=== PATIENT | female | born 1980 | race Caucasian/White ===

== ENCOUNTER 2019-01-28 12:55 | Outpatient (CLI) | payer OTHER | END 2019-01-28 23:59 | disposition home or self-care (01) | LOC: STAR 12:55 | PROVIDERS: ATTEND Obstetrics & Gynecology | DX: Z01.818 Encounter for other preprocedural examination (principal); N93.9 Abnormal uterine and vaginal bleeding, unspecified; N92.0 Excessive and frequent menstruation with regular cycle; R93.89 Abnormal findings on diagnostic imaging of other specified body structures | CPT/HCPCS: 93005 ==

== ENCOUNTER 2019-01-30 09:21 | Day surgery (SDC) | payer OTHER ==
[2019-01-28 14:01] LABS: BASOPHILS # (AUTO) 0.04 x10^3/uL (0-0.1); BASOPHILS % (AUTO) 1 % (0-1); EOSINOPHILS % (AUTO) 1 % (1-7); LYMPHOCYTES % (AUTO) 18 % (22-44); MD NO; MEAN CORPUSCULAR HEMOGLOBIN 29.1 pg (27.0-34.8); MEAN CORPUSCULAR HGB CONC 32.5 g/dL (32.4-35.8); MEAN CORPUSCULAR VOLUME 89.7 fL (80-100); MEAN PLATELET VOLUME 7.5 fL (7.4-10.4); MONOCYTES # (AUTO) 0.49 x10^3/uL (0.2-0.8); MONOCYTES % (AUTO) 6 % (2-9); NEUTROPHILS # (AUTO) 6.01 x10^3/uL (1.8-6.8); NEUTROPHILS % (AUTO) 74 % (42-75); PLATELET COUNT 303 x10^3/uL (130-400); RED CELL DISTRIBUTION WIDTH 14.7 % (9.6-15.2)
[2019-01-28 14:13] LABS: ALBUMIN 3.1 g/dL (3.4-5.0); ANION GAP 6 mmol/L (5-15); CHLORIDE 107 mmol/L (98-107)
[2019-01-28 14:20] LABS: ALANINE AMINOTRANSFERASE 60 U/L (12-78); ALKALINE PHOSPHATASE 88 U/L (45-117); BILIRUBIN,TOTAL 0.4 mg/dL (0.2-1.0); CREATININE 1.06 mg/dL (0.55-1.02); TOTAL PROTEIN 7.2 g/dL (6.4-8.2)
[~2019-01-30] VITALS: Ht 170.2 cm; Wt 182.5 kg
[~2019-01-30 09:21] MED LIST: CHOL10003 PO; HYDROCHLOROTH12.5 MG PO; IRON PO; LISI-167 PO; MULT-516 PO
[2019-01-30] MEDS ORDERED: LACTATED RINGERS 1,000 ML IV SCH (09:42)
[2019-01-30 09:50] VITALS: BP 137/92
[2019-01-30] MEDS ORDERED: BUPIVACAINE/PF 0.25% ONE (10:33)
[2019-01-30] MEDS ORDERED: EPINEPHRINE 1 MG/ML, 1ML ONE (10:33)
[2019-01-30] MEDS ORDERED: SILVER NITRATE STICK TP ONE (10:33)
[2019-01-30] MEDS ORDERED: MIDAZOLAM 1 MG/ML, 2ML ONE (10:49)
[2019-01-30] MEDS ORDERED: FENTANYL PF 250 MCG/5ML ONE ×2 (10:49→12:39)
[2019-01-30] MEDS ORDERED: DEXAMETHASONE 4 MG/ML, 1ML ONE (10:52)
[2019-01-30] MEDS ORDERED: PROPOFOL 10 MG/ML, 20ML ONE (10:52)
[2019-01-30] MEDS ORDERED: ONDANSETRON 2MG/ML, 2ML ONE (10:52)
[2019-01-30] MEDS ORDERED: CEFAZOLIN 1,000 MG ONE ×2 (10:52→12:29)
[2019-01-30] MEDS ORDERED: SUCCINYLCHOLINE 20 MG/ML, 10ML ONE (11:20)
[2019-01-30] MEDS ORDERED: MEPERIDINE/PF 25MG/0.5ML IVPush PRN (11:30)
[2019-01-30] MEDS ORDERED: HALOPERIDOL 5 MG/ML IV PRN (11:30)
[2019-01-30] MEDS ORDERED: hydrALAzine 20 MG/ML, 1ML IV PRN (11:30)
[2019-01-30] MEDS ORDERED: PROMETHAZINE 25 MG SUPP PR PRN (11:30)
[2019-01-30] MEDS ORDERED: PROMETHAZINE 25 MG/ML, 1ML IM PRN ×2 (11:30)
[2019-01-30] MEDS ORDERED: OXYcodone 5 MG/5 ML ORAL.SOL UDC PO PRN (11:30)
[2019-01-30] MEDS ORDERED: ACETAMINOPHEN 325 MG TABLET PO PRN (11:30)
[2019-01-30] MEDS ORDERED: MORPHINE SULFATE 4 MG/ML, 1ML IVPush PRN (11:30)
[2019-01-30] MEDS ORDERED: ONDANSETRON ODT 8 MG PO PRN (11:30)
[2019-01-30] MEDS ORDERED: ONDANSETRON 2MG/ML, 2ML IV PRN (11:30)
[2019-01-30] MEDS ORDERED: LABETALOL 5MG/ML, 20ML IV PRN (11:30)
[2019-01-30] MEDS ORDERED: PROMETHAZINE 25 MG/ML, 1ML IV PRN (11:30)
[2019-01-30] MEDS ORDERED: PROMETHAZINE 12.5 MG SUPP PR PRN (11:30)
[2019-01-30] MEDS ORDERED: HYDROmorphone 2 MG/ML, 1ML IVPush PRN (11:30)
[2019-01-30] MEDS ORDERED: KETOROLAC 30 MG/1 ML ONE (13:19)
[2019-01-30] MEDS ORDERED: OXYcodone 5 MG/5 ML ORAL.SOL UDC ONE (13:20)
[2019-01-30] MEDS ORDERED: FENTANYL PF 100 MCG/2ML ONE (13:20)
[2019-01-30] MEDS: FENTANYL PF 100 MCG/2ML IV PRN ×2 (13:22→13:37)
[2019-01-30] MEDS ORDERED: KETOROLAC 30 MG/1 ML IVPush ONE (13:30)
[2019-01-30] MEDS ORDERED: PROMETHAZINE 25 MG/ML, 1ML ONE (14:02)
[2019-01-30] MEDS ORDERED: LABETALOL 5MG/ML, 20ML IVPush SCH (15:30)
== END 2019-01-30 16:25 | disposition home or self-care (01) ==
LOC: OUT 09:21
PROVIDERS: ATTEND Obstetrics & Gynecology
DX: N84.0 Polyp of corpus uteri (principal); I10 Essential (primary) hypertension; E66.01 Morbid (severe) obesity due to excess calories; Z68.44 Body mass index [BMI] 60.0-69.9, adult; Z79.899 Other long term (current) drug therapy; Z88.8 Allergy status to other drugs, medicaments and biological substances
CPT/HCPCS: 36415; 58563; 80053; 84703; 85025; 88305; J0171; J0330; J0690; J1100; J1885; J2250; J2405; J2550; J2704; J3010; J3490; J7120

== ENCOUNTER 2019-02-03 18:04 | Emergency (ER) | payer OTHER ==
[~2019-02-03] VITALS: Ht 170.2 cm; Wt 185.0 kg
[2019-02-03 18:33] VITALS: BP 126/74
--- NOTE | 2019-02-03 18:34 | NUR ---
PT ARRIVED TO ROOM 14 AMBULATORY WITH SPOUSE. PT IS HERE FOR REDNESS, SWELLING, AND PAIN/DISCOMFORT TO LEFT WRIST. PT STATES SHE HAD AN IV IN HER LEFT HAND FOR SURGERY ON MONDAY. PT AAO X 4, MD HI AT BEDSIDE. PT ATTACHED TO MONITOR AND DRESSED IN GOWN. CALL LIGHT WITHIN REACH AND FALL PRECAUTIONS IN PLACE.
--- NOTE | 2019-02-03 19:23 | NUR ---
PT TO US.
--- NOTE | 2019-02-03 19:26 | NUR ---
PT BACK FROM US.
--- NOTE | 2019-02-03 19:42 | NUR ---
ALL RESULTS BACK AT THIS TIME, CHART UP FOR RECHECK.
--- NOTE | 2019-02-03 19:56 | NUR ---
Patient/Caregiver given discharge instructions and they have confirmed that they understand the instructions. Patient ambulatory with steady gait.
== END 2019-02-03 19:57 | disposition home or self-care (01) ==
LOC: ED 19:50
DX: I80.8 Phlebitis and thrombophlebitis of other sites (principal); I10 Essential (primary) hypertension
CPT/HCPCS: 99284